=== PATIENT | female | born 1955 | race Caucasian/White ===

== ENCOUNTER 2024-07-01 10:30 | Day surgery (SDC) | payer MEDICARE, BC, SELFPAY ==
[2024-06-30 15:33] VITALS: BMI 26.4
[2024-07-01] VITALS (10 sets, daily range): BP systolic 101–152; BP diastolic 67–101; PULSE 78–104; RESP 14–26; TEMP 36.4–36.8; O2SAT 94–100; BMI 26.0
[2024-07-01] MEDS: fentaNYL CIT INJ 50 mCg/ML AMP 2ML (ASD USE ONLY) IV (12:53)
[2024-07-01] MEDS: ONDANSETRON INJ 2 MG/ML INJ 2 ML 4 MG IV (12:53)
[2024-07-01] MEDS: MIDAZOLAM INJ 1 MG/ML VIAL 2 ML (ASD USE ONLY) 2 MG IV (13:03)
[2024-07-01] MEDS: MEPERIDINE INJ 25 MG/ML VIAL (ASD USE ONLY) IV (13:05)
[2024-07-01] MEDS: DiphenhydrAMINE INJ 50 MG/ML VIAL 25 MG IV (13:07)
--- NOTE | 2024-07-01 13:23 | SUR.PHASEII ---
1323: received pt from [place] via [facility] [place]. received report from ALEJANDRA Osborn. pt sleepy at this time. no s/s of pain or discomfort. no s/s of resp. distress or discomfort.
--- NOTE | 2024-07-01 13:57 | SUR.PHASEII ---
REPORT RECEIVED FROM CARA ROBERTS.
--- NOTE | 2024-07-01 13:57 | SUR.PHASEII ---
1357: pt ambulate to restroom with assist
--- NOTE | 2024-07-01 14:11 | SUR.PHASEII ---
D/C INSTRUCTIONS GIVEN TO PATIENT AND PATIENT'S SISTER RICKY. RICKY VERBALIZES UNDERSTANDING. PATIENT D/C HOME.
== END 2024-07-01 14:11 | disposition home or self-care (01) ==
PROVIDERS: PCP Internal Medicine; Referring Provider Specialist; Visit Provider Specialist
PROC: 0DBE8ZX Excision of Large Intestine, Via Natural or Artificial Opening Endoscopic, Diagnostic (ICD-10-PCS; CPT 45380; principal; 2024-07-01 12:15)
PROC: (CPT 43239; 2024-07-01 12:15)
DX: D12.2 Benign neoplasm of ascending colon (principal); K64.9 Unspecified hemorrhoids; K57.30 Diverticulosis of large intestine without perforation or abscess without bleeding; K21.00 Gastro-esophageal reflux disease with esophagitis, without bleeding; K29.70 Gastritis, unspecified, without bleeding
CPT/HCPCS: 45385; 43239; A4649; J1200; J2175; J2250; J2405; J3010

== ENCOUNTER → 2024-08-03 | Outpatient (CLI) | payer MEDICARE, BC, SELFPAY ==
[2024-08-03 09:10] LABS: Collection Type, Urine Clean Catch; Squamous Epithelial Cell,Urine 0 /hpf (0-5)
[2024-08-03 09:32] LABS: Basophils # (Auto) 0.1 Thou/mm3 (0.0-0.2); Basophils % (Auto) 1 % (0-2.5); Eosinophils # (Auto) 0.4 Thou/mm3 (0.0-0.5); Eosinophils % (Auto) 4 % (0-10); Hematocrit 42.2 % (36.0-46.0); Hemoglobin 13.7 g/dL (12.0-16.0); Immature Granulocytes % (Auto) 0 % (0-0); Immature Granulocytes Auto 0.05 Thou/mm3 (0.00-0.00); Lymphocytes % (Auto) 26 % (10-50); Mean Corpuscular HGB Conc 32.5 g/dl (31.0-37.0); Mean Corpuscular Hemoglobin 26.3 pg (25.0-35.0); Mean Corpuscular Volume 81 fL (80-100); Monocytes # (Auto) 1.3 Thou/mm3 (0.0-0.8); Monocytes % (Auto) 11 % (0-12); Neutrophils # (Auto) 6.8 Thou/mm3 (1.8-7.7); Neutrophils % (Auto) 58 % (37-80); Nucleated Red Blood Cell % 0 /100 WBC (0); Platelet Count 417 Thou/mm3 (140-440); Red Blood Count 5.21 Miln/mm3 (4.00-5.20); White Blood Count 11.7 Thou/mm3 (3.6-11.0)
[2024-08-03 09:41] LABS: Bilirubin,Urine Negative (Negative); Blood,Urine Negative (Negative); Clarity,Urine Clear (Clear/Hazy); Color,Urine Colorless (Lt Yel-Yel); Glucose, Urine Negative (Negative); Ketones,Urine Negative (Negative); Leukocyte Esterase,Urine Negative (Negative); Nitrite,Urine Negative (Negative); PH,Urine 6.5 (5.0-7.0); Protein,Urine Negative (Neg - Trace); RBC,Urine 1 /hpf (0-3); Specific Gravity,Urine 1.008 (1.001-1.035); Urobilinogen,Urine Negative mg/dL (0.0-1.0); WBC,Urine < 1 /hpf (0-5)
[2024-08-03 09:58] LABS: Alanine Aminotransferase 14 U/L (10-49); Albumin, Serum 4.5 gm/dL (3.4-4.8); Albumin/Globulin Ratio 1.5 (1.2-2.2); Alkaline Phosphatase 121 U/L (46-116); Amylase 62 U/L (30-118); Anion Gap 8 (7-16); Aspartate Amino Transferase 16 U/L (0-34); BUN/Creatinine Ratio 15 Ratio (12-20); Bilirubin,Total 0.4 mg/dL (0.3-1.2); Blood Urea Nitrogen 12 mg/dL (9-23); Calcium 10.2 mg/dL (8.3-10.6); Calcium (Corrected) 10.2 mg/dL (8.5-10.1); Carbon Dioxide 29.5 mMol/L (20.0-31.0); Chloride 101 mMol/L (98-107); Creatinine (Component) 0.8 mg/dL (0.6-1.3); Glucose 97 mg/dL (74-106); Lipase 48 U/L (12-53); Osmolality,Calculated 275 (275-295); Potassium 4.4 mMol/L (3.4-5.1); Sodium 138 mMol/L (136-145); Total Protein 7.5 gm/dL (5.7-8.2); eGFR > 60 See Note
== END | disposition home or self-care (01) ==
LOC: COPL 08:29
PROVIDERS: PCP Family Medicine; Referring Provider Specialist; Visit Provider Specialist
DX: R10.9 Unspecified abdominal pain (principal)
CPT/HCPCS: 36415; 80053; 81001; 82150; 83690; 85025

== ENCOUNTER → 2024-09-02 | Outpatient (CLI) | payer MEDICARE, BC, SELFPAY ==
--- NOTE | 2024-09-02 09:31 | XR_ITS ---
Examination: Left knee 4 views TECHNIQUE: AP oblique lateral axial left knee 4 views Exam date and time: September 02, 2024 at 1003 hours INDICATIONS: Patient fell August 20, 2024 with injury to the knee, knee pain and swelling FINDINGS: No fracture or dislocation No joint narrowing IMPRESSION: No fracture or dislocation
[2024-09-02 11:44] LABS: Alanine Aminotransferase 14 U/L (10-49); Albumin, Serum 4.6 gm/dL (3.4-4.8); Albumin/Globulin Ratio 1.6 (1.2-2.2); Alkaline Phosphatase 107 U/L (46-116); Anion Gap 9 (7-16); Aspartate Amino Transferase 18 U/L (0-34); BUN/Creatinine Ratio 16 Ratio (12-20); Bilirubin,Total 0.6 mg/dL (0.3-1.2); Blood Urea Nitrogen 13 mg/dL (9-23); Calcium 10.2 mg/dL (8.3-10.6); Calcium (Corrected) 10.2 mg/dL (8.5-10.1); Chloride 104 mMol/L (98-107); Creatinine (Component) 0.8 mg/dL (0.6-1.3); Globulin 2.9 gm/dL (2.3-3.5); Glucose 102 mg/dL (74-106); Osmolality,Calculated 279 (275-295); Potassium 3.8 mMol/L (3.4-5.1); Sodium 140 mMol/L (136-145); Total Protein 7.5 gm/dL (5.7-8.2); eGFR > 60 See Note
== END | disposition home or self-care (01) ==
PROVIDERS: PCP Internal Medicine; Referring Provider Internal Medicine; Visit Provider Internal Medicine
DX: S89.92XA Unspecified injury of left lower leg, initial encounter (principal); W19.XXXA Unspecified fall, initial encounter; R10.9 Unspecified abdominal pain
CPT/HCPCS: 36415; 73564; 80053

== ENCOUNTER → 2024-09-05 | Outpatient (CLI) | payer MEDICARE, BC, SELFPAY ==
--- NOTE | 2024-09-05 10:00 | XR_ITS ---
Examination: CT abdomen with intravenous contrast CT pelvis with intravenous contrast 2-D coronal reconstructions 2-D sagittal reconstructions Date and time of exam:September 05, 2024 at 1008 hours Comparison September 30, 2014 INDICATIONS: Epigastric pain beginning 2 years ago. CTDI: vol (mGy) 18.8 DLP: (mGycm) 571 Technique: Multiple axial sections of the abdomen and pelvis have been obtained. 64 slice high-resolution scanner used. 3 mm axial sections have been obtained, post intravenous injection 60 cc [id number] 2-D sagittal, coronal reconstructions obtained. Low dose protocols were performed. One or more of the following dose reduction techniques were used; automated exposure control, adjustment of the mA and/or KV according to patient size, use of iterative reconstruction technique. Findings: No focal liver or splenic lesions Small retrocardiac gastric hernia Absent gallbladder Common bile duct 9 mm No pancreatic mass No renal or ureteral calculi Abdominal aortic calcification no aneurysmal dilatation No bowel obstruction No pericecal inflammatory change No bladder mass Grade 1 anterolisthesis L4 on L5 IMPRESSION: Absent gallbladder Common bile duct 9 mm no common bile duct stones noted No renal or ureteral calculi, no hydronephrosis No CT findings of appendicitis or bowel obstruction
== END | disposition home or self-care (01) ==
PROVIDERS: Referring Provider Specialist; Visit Provider Specialist
DX: R10.9 Unspecified abdominal pain (principal); Z90.49 Acquired absence of other specified parts of digestive tract
CPT/HCPCS: 74177; A4649; Q9967

== ENCOUNTER 2024-10-24 07:25 | Day surgery (SDC) | payer MEDICARE, BC, SELFPAY ==
[2024-10-24] VITALS (13 sets, daily range): BP systolic 101–151; BP diastolic 65–97; PULSE 67–85; RESP 12–21; TEMP 36.4–36.7; O2SAT 94–99
--- NOTE | 2024-10-24 07:29 | EKG_ITS ---
[facility] Test Date: 2024-10-24 Pat Name: MEGHNA RAMIREZ Department: Room: - Gender: Female Deck Mate: JEREMY : 1955 Requested By: Valerie Gray Order Number: [id number] Reading MD: Valerie Gray Measurements Intervals Spearman Rate: 78 P: 60 IA: 124 QRS: 57 QRSD: 84 T: 38 QT: 363 QTc: 416 Interpretive Statements SINUS RHYTHM INDETERMINATE AXIS LOW QRS VOLTAGE IN PRECORDIAL LEADS [QRS DEFLECTION < 1.0 mV IN CHEST LEADS] POSSIBLE RIGHT VENTRICULAR CONDUCTION DELAY [RSR (QR) IN V1/V2] Compared to ECG 01/17/2019 13:19:13 Indeterminate axis now present Low QRS voltage now present /store/S0/[id number]/ecg/[id number].pdf
[2024-10-24 08:09] LABS: Basophils # (Auto) 0.1 Thou/mm3 (0.0-0.2); Basophils % (Auto) 1 % (0-2.5); Eosinophils # (Auto) 0.6 Thou/mm3 (0.0-0.5); Eosinophils % (Auto) 6 % (0-10); Hemoglobin 13.9 g/dL (12.0-16.0); Immature Granulocytes % (Auto) 0 % (0-0); Immature Granulocytes Auto 0.04 Thou/mm3 (0.00-0.00); Lymphocytes # (Auto) 2.9 Thou/mm3 (1.0-4.8); Lymphocytes % (Auto) 27 % (10-50); Mean Corpuscular HGB Conc 33.1 g/dl (31.0-37.0); Mean Corpuscular Hemoglobin 26.8 pg (25.0-35.0); Mean Corpuscular Volume 81 fL (80-100); Monocytes # (Auto) 1.1 Thou/mm3 (0.0-0.8); Monocytes % (Auto) 10 % (0-12); Neutrophils # (Auto) 6.1 Thou/mm3 (1.8-7.7); Neutrophils % (Auto) 56 % (37-80); Nucleated Red Blood Cell % 0 /100 WBC (0); Platelet Count 349 Thou/mm3 (140-440); RDW Standard Deviation 39.9 fL (36.4-46.3); Red Blood Count 5.18 Miln/mm3 (4.00-5.20); White Blood Count 10.9 Thou/mm3 (3.6-11.0)
[2024-10-24 08:12] LABS: Anion Gap 6 (7-16); BUN/Creatinine Ratio 12 Ratio (12-20); Blood Urea Nitrogen 11 mg/dL (9-23); Calcium 9.1 mg/dL (8.3-10.6); Carbon Dioxide 26.1 mMol/L (20.0-31.0); Chloride 109 mMol/L (98-107); Creatinine (Component) 0.9 mg/dL (0.6-1.3); Glucose 105 mg/dL (74-106); Osmolality,Calculated 280 (275-295); Potassium 3.6 mMol/L (3.4-5.1); Sodium 141 mMol/L (136-145); eGFR > 60 See Note
[2024-10-24 08:19] LABS: Partial Thromboplastin Time 30.2 Seconds (22.0-36.0); Prothrombin Time 11.3 Seconds (9.0-12.2)
--- NOTE | 2024-10-24 13:10 | PC.NURSE ---
1300 patient is awake, alert, breathing unlabored, s/p LHC by Dr. Onofre, TR band present to right wrist, dry blood noted, no active bleeding or hematoma. Report received from Scarlett ROBERTS, patient to recover for 3hrs and be discharged 1hr post TR band removal.
--- NOTE | 2024-10-24 14:30 | PC.NURSE ---
1430 TR band removed, no bleeding or hematoma noted
--- NOTE | 2024-10-24 15:48 | PC.NURSE ---
1531 patient is awake, alert, breathing unlabored, Dressing to right wrist dry with no bleeding or hematoma,patient able to tolerate food tray with no nausea or vomiting, meets discharge criteria, discharge instructions given to patient and Joseline, patient discharged home in wheelchair with all belongings.
--- NOTE | 2024-10-25 00:28 | ESOP_ITS ---
RE: MEGHNA RAMIREZ : 1955 DATE OF OPERATION: 10/24/2024 PROCEDURES PERFORMED: 1. Diagnostic left heart cardiac catheterization, selective coronary angiogram, and left ventricular angiogram, CPT 14280. 2. Conscious sedation, 30 minutes duration. 3. Ultrasound-guided access, right radial artery. DIAGNOSES: Coronary artery disease and abnormal stress test. HISTORY AND INDICATIONS: The patient is a 69-year-old lady with a history of hypertension and family history of heart disease and CAD. She has been doing well until recently. She has had atypical chest pain and shortness of breath. Cardiac stress test and nuclear scan were abnormal, hence coronary angiogram was recommended to assess the patient is a candidate for coronary intervention. DESCRIPTION OF PROCEDURE: The patient was brought to the cardiac catheterization laboratory where she was given 2 mg of Versed and 50 mcg of fentanyl for sedation. Right radial approach was taken. Right radial artery was cannulated with a micropuncture technique. A 6-[place] Glides[place]ath was introduced. Selective right and left coronary angiogram was performed by TIG-4 5-[place] diagnostic catheter. Left heart catheterization and left ventricular angiogram was performed by TIG-4 diagnostic catheter. The patient tolerated the procedure well. No complications. Radial cocktail was given with 200 mcg of nitroglycerin and 2000 units of heparin . Coronary angiogram showed the following findings: Right coronary artery is large and dominant, appears normal. This gives off posterior descending artery. Left coronary system: Left main coronary artery is normal. There is some calcification in the distal left main coronary artery. Proximal left anterior descending artery and circumflex artery showed calcification. No significant stenosis. Left anterior descending artery gives off diagonal and septal branches. Calcification is seen. No significant stenosis. Left circumflex artery showed calcification in the proximal segment, fairly co-dominant, gives off posterolateral branches, appear normal. Left ventricular pressure is 110, EDP is 12, aortic pressure is 110/70. No gradient across the aortic valve. Left ventricular angiogram showed normal left ventricular wall motion, ejection fraction 70%. SUMMARY OF FINDINGS: 1. There is some coronary calcification of the circumflex artery and left anterior descending artery and left main coronary artery with no stenosis. 2. Normal left ventricular systolic function. 3. Nonobstructive epicardial coronary artery. RECOMMENDATIONS: The patient has coronary atherosclerosis and calcification, but no obstructive coronary artery disease. Reassured about these findings. Prognosis is excellent. DT: 23:03:46 TT: 23:54:00 Ref: [id number] - TID: [id number] MTDD
== END 2024-10-24 15:31 | disposition home or self-care (01) ==
PROVIDERS: PCP Family Medicine; Referring Provider Internal Medicine Cardiovascular Disease; Visit Provider Internal Medicine Cardiovascular Disease
PROC: (CPT 93458; principal; 2024-10-24 11:30)
DX: I25.118 Atherosclerotic heart disease of native coronary artery with other forms of angina pectoris (principal); I10 Essential (primary) hypertension; E78.00 Pure hypercholesterolemia, unspecified; I34.0 Nonrheumatic mitral (valve) insufficiency; Z79.82 Long term (current) use of aspirin; Z79.899 Other long term (current) drug therapy
CPT/HCPCS: 93458; 36415; 80048; 85025; 85610; 85730; 93005; 99152; A4649; C1769; C1776; C1887; C1894; J0461; J1643; J2250; J2310; J2371; J3010; J3490

== ENCOUNTER → 2025-01-18 | Outpatient (CLI) | payer MEDICARE, BC, SELFPAY ==
[2025-01-18 09:44] LABS: Basophils # (Auto) 0.1 Thou/mm3 (0.0-0.2); Basophils % (Auto) 1 % (0-2.5); Eosinophils # (Auto) 0.4 Thou/mm3 (0.0-0.5); Eosinophils % (Auto) 4 % (0-10); Hematocrit 43.3 % (36.0-46.0); Hemoglobin 14.4 g/dL (12.0-16.0); Immature Granulocytes Auto 0.03 Thou/mm3 (0.00-0.00); Lymphocytes # (Auto) 3.3 Thou/mm3 (1.0-4.8); Lymphocytes % (Auto) 34 % (10-50); Mean Corpuscular HGB Conc 33.3 g/dl (31.0-37.0); Mean Corpuscular Hemoglobin 27.2 pg (25.0-35.0); Mean Corpuscular Volume 82 fL (80-100); Monocytes # (Auto) 1.0 Thou/mm3 (0.0-0.8); Monocytes % (Auto) 10 % (0-12); Neutrophils # (Auto) 5.0 Thou/mm3 (1.8-7.7); Neutrophils % (Auto) 51 % (37-80); Nucleated Red Blood Cell # 0.00 Thou/mm3 (0.00-0.00); Nucleated Red Blood Cell % 0 /100 WBC (0); Platelet Count 375 Thou/mm3 (140-440); RDW Standard Deviation 40.7 fL (36.4-46.3); Red Blood Count 5.30 Miln/mm3 (4.00-5.20); White Blood Count 9.8 Thou/mm3 (3.6-11.0)
[2025-01-18 09:54] LABS: Glucose Estimated Average 126 mg/dL (80-131); Hemoglobin A1C 6.0 % Hgb (4.8-6.0)
[2025-01-18 10:03] LABS: Alanine Aminotransferase 12 U/L (10-49); Albumin, Serum 4.5 gm/dL (3.4-4.8); Albumin/Globulin Ratio 1.6 (1.2-2.2); Alkaline Phosphatase 104 U/L (46-116); Anion Gap 9 (7-16); Aspartate Amino Transferase 21 U/L (0-34); BUN/Creatinine Ratio 9 Ratio (12-20); Bilirubin,Total 0.6 mg/dL (0.3-1.2); Blood Urea Nitrogen 8 mg/dL (9-23); Calcium 9.9 mg/dL (8.3-10.6); Calcium (Corrected) 9.9 mg/dL (8.5-10.1); Carbon Dioxide 28.8 mMol/L (20.0-31.0); Cardiac Risk Estimate 3.0 RATIO (3.7-5.6); Chloride 103 mMol/L (98-107); Cholesterol 133 mg/dL (132-200); Creatinine (Component) 0.9 mg/dL (0.6-1.3); Globulin 2.9 gm/dL (2.3-3.5); Glucose 101 mg/dL (74-106); HDL Cholesterol 45 mg/dL (40-60); LDL Cholesterol,Calculated 53 mg/dL (0-130); Osmolality,Calculated 279 (275-295); Potassium 3.6 mMol/L (3.4-5.1); Sodium 141 mMol/L (136-145); Thyroid Stimulating Hormone 2.15 uIU/mL (0.55-4.78); Total Protein 7.4 gm/dL (5.7-8.2); Triglycerides 174 mg/dL (30-150); eGFR > 60 See Note
[2025-01-23 14:37] LABS: HIV Ag/Ab, 4th Gen NON-REACTIVE
== END | disposition home or self-care (01) ==
LOC: COPL 08:13
PROVIDERS: PCP Internal Medicine; Referring Provider Internal Medicine; Visit Provider Internal Medicine
DX: B37.0 Candidal stomatitis (principal); E78.2 Mixed hyperlipidemia; Z11.3 Encounter for screening for infections with a predominantly sexual mode of transmission; Z11.59 Encounter for screening for other viral diseases
CPT/HCPCS: 36415; 80053; 80061; 83036; 84443; 85025; 87389

== ENCOUNTER → 2025-05-08 | Outpatient (CLI) | payer MEDICARE, BC, SELFPAY ==
--- NOTE | 2025-05-08 12:30 | XR_ITS ---
Imitation: Bone densitometry Date and time of exam: 05/08/2025 Indication: Age-related osteoporosis without current pathologic fracture. Additional history: PREVIOUS BD 05/04/23, 2020, 2014, 2018, 2010, HYSTERECTOMY AGE 33, VIT. D X 5-10 YEARS, MOTHER HAD OSTEOPOROSIS Technique: Lumbar spine and hip total bone mineralization values of an calculated. Peak reference and age match control results have been displayed. Findings: Lumbar spine total bone mineralization is 0.932 gm/cm2. This is 1.0 standard deviations below peak reference. This is 1.2 standard deviations above age-matched controls. Hip total bone mineralization is 0.812 gm/cm2 This is 1.1 standard deviations below peak reference. This is 0.5 standard deviations above age-matched controls Impression: Normal mineralization based on on lumbar spine measurements. Osteopenia based on hip measurements. Lumbar mineralization decreased 0.5% compared with 05/04/2023. Hip mineralization decreased 3.3% compared to 05/04/2023.
--- NOTE | 2025-05-08 13:00 | XR_ITS ---
Examination: Screening digital mammography, bilateral Computer aided detection 3-D breast Tomosynthesis, bilateral Date and time of exam: May 08, 2025, 12:40 p.m., compared to mammograms dating to August 10, 2020 Indication: Screening Technique: Nonmagnified MLO, CC views of the breasts to been obtained, reconstructed from 3-D Tomosynthesis images. R2 computer aided detection program utilized for evaluation of suspicious masses and/or abnormal calcifications. 3-D Tomosynthesis images obtained. Findings: Scattered areas of fibroglandular density. Asymmetric glandular tissue upper outer right breast stable Skin lesions upper outer left breast No interval suspicious masses Impression: BI-RADS category II: Benign Findings. Recommend 1 year follow-up mammogram.
== END | disposition home or self-care (01) ==
LOC: CDIM 12:01
PROVIDERS: Referring Provider Internal Medicine; Visit Provider Internal Medicine
DX: Z12.31 Encounter for screening mammogram for malignant neoplasm of breast (principal); R92.323 Mammographic fibroglandular density, bilateral breasts; M85.89 Other specified disorders of bone density and structure, multiple sites
CPT/HCPCS: 77063; 77067; 77080